=== PATIENT | female | born 1985 | race Two or more races ===

== ENCOUNTER 2018-09-10 07:39 | Day surgery (SDC) | payer MEDICAID ==
[2018-09-10] VITALS (12 sets, daily range): BP systolic 123–156; BP diastolic 63–84; PULSE 57–92; RESP 13–24; Ht 162.6 cm; Wt 84.6 kg
[~2018-09-10] VITALS: Ht 162.6 cm; Wt 84.6 kg
[~2018-09-10 07:39] MED LIST: LABE200T25 PO; PREN1TAB49 PO
--- NOTE | 2018-09-10 07:49 | PREOPHP ---
DATE OF ADMISSION: 09/10/2018 HISTORY OF PRESENT ILLNESS: Ms. Radha Delarosa is a 33-year-old 3, para 3, desires permane nt surgical sterilization. PAST MEDICAL HISTORY: Hypertension. MEDICATIONS: 1. Hydrochlorothiazide. 2. Lisinopril. PAST SURGICAL HISTORY: x1 previous , x2 vaginal delivery. OBSTETRIC HISTORY: x1 previous section, x2 vaginal delivery. GYNECOLOGIC HISTORY: 11, regular 3 to 4 days. Denies any sexually transmitted infections. Sexually active with 1 partner. SOCIAL HISTORY: Denies any smoking, drugs or alcohol. FAMILY HISTORY: None. REVIEW OF SYSTEMS: All within normal except history of present illness. PHYSICAL EXAMINATION: HEENT: Within normal. LUNGS: CTA bilateral. CARDIOVASCULAR: S1, S2, regular rhythm. ABDOMEN: Gravid, nontender. Negative CVA bilateral. EXTREMITIES: Negative calf tenderness. VAGINAL: Normal external genitalia. Cervix negative CMT, negative lesions. Adnexa negative mass, n ontender bilateral. Fundus within normal limits. ASSESSMENT: Multiparity, desires permanent surgical sterilization. PLAN: Consent for laparoscopic bilateral tubal sterilization. Risks, benefits and alternatives expl ained. All questions were answered. Dictated By: TRA REEVES/ERICH Conf#: [id number] DID#: [id number]
[2018-09-10] MEDS ORDERED: [UNRECOGNIZED DRUG - CODE] PO (08:42)
[2018-09-10] MEDS ORDERED: LACTATED RINGER'S 1,000 ML IV SCH (09:30)
--- NOTE | 2018-09-10 10:54 | PREAC ---
Date/Time of Note Date/Time of Note DATE: 09/10/18 TIME: 10:53 Anesthesia Eval and Record Evaluation Time Pre-Procedure Interview DATE: 09/10/18 TIME: 10:53 Age 33 Sex female NPO: 8 hrs Preoperative diagnosis desired sterilization Planned procedure laparoscopic bilateral tubal ligation Past Medical History Past Medical History: Includes Cardio: HTN GI: Obesity Surgery & Anesthesia Issues No known issue Meds Anticoagulation: No Beta Joel within 24 hr: No Reason Beta Joel not given: Pt. not on B-Joel Reported Medications Lisinopril/Hydrochlorothiazide (Zestoretic 20-12.5 mg Tablet) 1 Each Tablet, 1 TAB PO DAILY, TAB 09/10/18 Discontinued Reported Medications Vits W-Ca,Fe,Fa(<1MG) () 1 Tab Tablet, 1 TAB PO 05/03/11 Labetalol Hcl* (Labetalol Hcl*) 200 Mg Tablet, 200 MG PO BID 05/03/11 Current Medications Lactated Ringer's 1,000 ml @ 70 mls/hr [id number] IV Last administered on 09/10/18at 09:31; Admin Dose 70 MLS/HR; Start 09/10/18 at 09:30 Meds reviewed: Yes Allergies Coded Allergies: No Known Allergies (Verified Allergy, Unknown, 09/10/18) Allergies Reviewed: Yes Labs/Studies Labs Reviewed: Reviewed by anesthesiologist Result Diagram: 09/10/18 0857 Laboratory Tests 09/10/18 08:57 Blood Bank Test 09/10/18 08:57 Blood Type A POSITIVE test: Negative Pre-procedure Exam Last vitals Vital Signs Date Temp Pulse Resp B/P (MAP) Pulse Ox O2 O2 Flow FiO2 Time Delivery Rate 09/10/18 98.7 69 16 146/78 99 Room Air 09:18 (100) Airway: Adequate mouth opening, Adequate thyromental dist Mallampati: Mallampati II Teeth: Normal Lung: Normal Heart: Normal ASA Physical Status ASA physical status: 2 Emergency: None Planned Anesthetic General/MAC: ETT Nerve block: TAP (bilateral) Planned Pain Management Single shot nerve block, Parenteral pain med Pre-operative Attestations Prior to commencing anesthesia and surgery, the patient was re-evaluated, there was verification of: *The patient's identity *The results of appropriate recent lab work and preoperative vital signs *The above evaluation not changing prior to induction *Anesthetic plan, risk benefits, alternative and complications discussed with patient/family; questions answered; patient/family understands, accepts and wishes to proceed. Liability Analyst used LYRIC WEST MD Sep 10, 2018 10:54
[2018-09-10] MEDS ORDERED: PROCHLORPERAZINE 10 MG INJ IV PRN (11:00)
[2018-09-10] MEDS ORDERED: MEPERIDINE 25 MG INJ IV PRN (11:00)
[2018-09-10] MEDS ORDERED: ONDANSETRON 4 MG INJ IV PRN (11:00)
[2018-09-10] MEDS ORDERED: DIPHENHYDRAMINE 50 MG INJ IV PRN (11:00)
[2018-09-10] MEDS ORDERED: FENTAnyl 50 MCG/ML VIAL IV PRN ×3 (11:00)
[2018-09-10] MEDS ORDERED: HYDROmorphONE 1 MG/5 ML IV SYRINGE IV PRN ×3 (11:00)
[2018-09-10] MEDS ORDERED: OXYCODONE/ACETAMINOPHEN (5/325) TAB PO PRN (11:00)
[2018-09-10] MEDS ORDERED: PROPOFOL 20 ML ONE (11:25)
[2018-09-10] MEDS ORDERED: LIDOCAINE 2% (SDV) 5 ML INJ ONE (11:25)
[2018-09-10] MEDS ORDERED: SUCCINYLCHOLINE CHLORIDE 100 MG/5 ML SYG IV ONE (11:25)
[2018-09-10] MEDS ORDERED: MIDAZOLAM 1 MG/ML 2 ML INJ ONE (11:25)
[2018-09-10] MEDS ORDERED: FENTAnyl 50 MCG/ML VIAL ONE (11:26)
[2018-09-10] MEDS ORDERED: ROPIVACAINE 0.5 % 30 ML VIAL ONE (11:33)
[2018-09-10] MEDS ORDERED: ROCURONIUM 50 MG INJ ONE (11:46)
[2018-09-10] MEDS ORDERED: CEFAZOLIN 1 GM INJ ONE (11:46)
[2018-09-10] MEDS ORDERED: FAMOTIDINE 20 MG INJ ONE (11:50)
[2018-09-10] MEDS ORDERED: DEXAMETHASONE 4 MG/ML 5 ML INJ ONE (11:50)
[2018-09-10] MEDS ORDERED: ONDANSETRON 4 MG INJ ONE (11:51)
[2018-09-10] MEDS ORDERED: GLYCOPYRROLATE 0.4 MG INJ ONE ×2 (12:06→12:17)
[2018-09-10] MEDS ORDERED: NEOSTIGMINE 3 MG/3 ML SYRINGE ONE ×2 (12:06→12:17)
--- NOTE | 2018-09-10 12:27 | PD.PPDC ---
PMO BUSINESS ANALYST Discharge Instruction Condition [id number] Patient Condition: [id number] Fair Diet Bupep0Gk Diet: Ripay5s Resume Regular Diet Activity/Restrictions Wyenj0Mo Activity: Idpny0u Normal Activity May Shower Sodld9Zn Restrictions: Wpill3w No Exercising No Lifting No Driving No Sexual Activity Nothing in the Vagina No [place] No Tampons, douche Follow-up Follow-up with Physician: 2, Week/Weeks Return to clinic for [id number] CONCRETE JOURNEYMAN Instructions: Ycqiz2f Fever greater than 101 Chills Worsening abdominal pain Excessive Vaginal Bleeding More than 2 pads per hour Unable to tolerate diet [id number] OB Instructions: Vzdcx3l Breast Tenderness Depression Blurried Vision Headache [id number] Surgical Instructions: Xxgum1j Incisional Drainage Incisional Redness TRA CASH MD Sep 10, 2018 12:27
--- NOTE | 2018-09-10 12:27 | OPPN ---
Date/Time of Note Date/Time of Note DATE: 09/10/18 TIME: 12:14 Operative Report Planned Procedure Procedure date Sep 10, 2018 Procedure(s) laparoscopic bilateral tubal fulguration Performed by see signature line Meatcutter: TRA CASH MD 2nd Meatcutter none Pre-procedure diagnosis Multiparity, desires permanent surgical sterilization. [id number] Anesthesia Type: Dgeit7i general Post-Procedure Post-procedure diagnosis same Findings normal uterus tubes and ovaries Estimated Blood Loss: minimal (8019) Specimen(s) none Grafts/Implant(s) none Complication(s) none TRA CASH MD Sep 10, 2018 12:24
--- NOTE | 2018-09-10 13:10 | PAC ---
Date/Time of Note Date/Time of Note DATE: 09/10/18 TIME: 13:10 Post-Anesthesia Notes Post-Anesthesia Note Last documented vital signs Vital Signs Date Temp Pulse Resp B/P (MAP) Pulse Ox O2 O2 Flow FiO2 Time Delivery Rate 09/10/18 60 13 133/73 99 Room Air 13:02 (93) 09/10/18 97.8 12:21 Activity: WNL Respiratory function: WNL Cardiovascular function: WNL Mental status: Baseline Pain reasonably controlled: Yes Hydration appropriate: Yes Nausea/Vomiting absent: Yes LYRIC WEST MD Sep 10, 2018 13:10
--- NOTE | 2018-09-12 16:44 | OPR ---
DATE OF OPERATION: 09/10/2018 PREOPERATIVE DIAGNOSES: Multiparity, desires permanent surgical sterilization. POSTOPERATIVE DIAGNOSES: Multiparity, desires permanent surgical sterilization. PROCEDURE: Laparoscopic bilateral tubal fulguration. SURGEON: Tra Knight MD SHAREPOINT ARCHITECT: None. ANESTHESIA: General. COMPLICATIONS: None. ESTIMATED BLOOD LOSS: Minimal. FINDINGS: Normal uterus, tubes, and ovaries. DESCRIPTION OF PROCEDURE: After explaining the risks, benefits, and alternatives, the patient had co nsent signed in chart. The patient was taken to the operating room where general anesthesia was obta ined without difficulty. The patient was then examined under anesthesia and found to have a small an teverted uterus with normal adnexa. She was then placed in a dorsal lithotomy position and prepared and draped in a sterile fashion. A heavy weighted speculum was then placed in the patient's vagina a nd the anterior lip of the cervix was grasped with a single tooth tenaculum. A HUMI uterine manipula tor was then advanced into the uterus to provide means to manipulate the uterus. The speculum was th en removed from the patient's vagina. Attention was then turned to the patient's abdomen where a 5 m m skin incision was made in the umbilical fold. The Veress needle was carefully introduced into the peritoneal cavity at 45-degree angle while tenting the abdominal wall. Intraperitoneal placement was confirmed by use of water-filled syringe and a drop in intraabdominal pressure with insufflation of CO2 gas. The trocar and sleeve were then advanced without difficulty into the abdomen where intra-ab dominal placement was confirmed by laparoscope. Pneumoperitoneum was obtained with 4 L of CO2 gas, a nd a 5 mm trocar and sleeve were then advanced without difficulty into the abdomen where intra-abdomi nal placement was confirmed by laparoscope. A second skin incision was made 2 cm over the symphysis pubis in the midline. The second trocar and sleeve were then advanced under direct visualization. A survey of the patient's pelvis and abdomen revealed normal. At this point, the right fallopian tube was fulgurated at multiple areas of the ampullary and isthmus area with good blanching. Similarly, the left fallopian tube was fulgurated. The instruments were then removed from the patient's abdomen , and the incision was repaired with 3-0 Vicryl. The HUMI was then removed from the patient's vagina with no bleeding noted from the cervix. The patient tolerated procedure well. Sponge, lap, and nee dle counts were correct. The patient was taken to recovery room in stable condition. Dictated By: TRA REEVES/ERICH Conf#: [id number] DID#: [id number]
== END 2018-09-10 14:20 | disposition home or self-care (01) ==
LOC: SDS 07:39
PROVIDERS: ATTEND Obstetrics & Gynecology
DX: Z30.2 Encounter for sterilization (principal); I10 Essential (primary) hypertension
CPT/HCPCS: 58670; 84702; 84703; 85025; 86900; 86901; J0690; J1100; J1170; J2250; J2405; J2710; J2795; J3010; Z7512; Z7610

== ENCOUNTER → 2018-09-28 | Emergency (ER) | payer MEDICAID ==
[~2018-09-28] VITALS: Ht 162.6 cm; Wt 83.7 kg
[~2018-09-28] MED LIST changes: -LABE200T25 PO; -PREN1TAB49 PO; +[UNRECOGNIZED DRUG - CODE] PO
[2018-09-28 11:53] VITALS: BP 133/68; PULSE 71; RESP 18; Ht 162.6 cm; Wt 83.7 kg
--- NOTE | 2018-09-28 13:13 | ERD ---
ER Documentation Chief Complaint Chief Complaint wound check s/p sterilization on 09/10 HPI 33-year-old female presents with complaints of pain and irritation around the surgical site. She had a tubal ligation performed approximately 2 and half weeks ago. She has an appointment next week for evaluation for suture removal and follow-up with her surgeon. She denies fevers, vomiting, redness, bleeding or discharge. ROS All systems reviewed and are negative except as per history of present illness. Medications Home Meds Reported Medications Lisinopril/Hydrochlorothiazide (Zestoretic 20-12.5 mg Tablet) 1 Each Tablet, 1 TAB PO DAILY, TAB 09/10/18 Allergies Allergies: Coded Allergies: No Known Allergies (Verified Allergy, Unknown, 09/10/18) PMhx/Soc History of Surgery: Yes () Anesthesia Reaction: No Hx Neurological Disorder: No Hx Respiratory Disorders: No Hx Cardiac Disorders: Yes (HTN) Hx Psychiatric Problems: No Hx Miscellaneous Medical Probl: No Hx Alcohol Use: No Hx Substance Use: No Hx Tobacco Use: No FmHx Family History: No diabetes, No coronary disease, No other Physical Exam Vitals Vital Signs Date Temp Pulse Resp B/P (MAP) Pulse Ox O2 O2 Flow FiO2 Time Delivery Rate 09/28/18 97.3 71 18 133/68 99 11:53 (89) Physical Exam Const: No acute distress Head: Atraumatic Eyes: Normal Conjunctiva ENT: Normal External Ears, Nose and Mouth. Neck: Full range of motion. No meningismus. Resp: Clear to auscultation bilaterally Cardio: Regular rate and rhythm, no murmurs Abd: Soft, non tender, non distended. Normal bowel sounds. Healing laparoscopy sites on the lower abdomen and umbilicus. Irritation due to what appears to be absorbable sutures but no induration, streaking, discharge, fluctuance. No deep abdominal tenderness or rebound or masses. Skin: No petechiae or rashes Back: No midline or flank tenderness Ext: No cyanosis, or edema Neur: Awake and alert Psych: Normal Mood and Affect Procedures/MDM Patient presents with what appears to be a satisfactorily healing surgical site from a tubal ligation performed to 9 weeks ago. She does have some remaining absorbable sutures without findings to suggest infection, abscess, and is no signs of deep abdominal tenderness or peritoneal signs. She appears to have irritation likely from the sutures. She is well-appearing. She will discharged home with recommended follow-up with her appointment with her surgeon next week. She will return sooner for fevers, vomiting, new worsening symptoms. The patient was stable with no new complaints during the ER course. Clinically, there is no current evidence to suggest meningitis, sepsis, acute abdomen, pneumonia, stroke, acute coronary syndrome, pulmonary embolism, aortic dissection or any other emergent condition appearing to require further evalua tion or hospitalization. Patient counseled regarding my diagnostic impression and care plan. Prior to discharge all questions answered. Pt agrees with treatment plan and understands strict return precautions. Pt is instructed to follow up with primary care provider within 24-48 hours. Precautionary instructions provided including instructions to return to the ER if not improving or for any worsening or changing symptoms or concerns. Disclaimer: Inadvertent spelling and grammatical errors are likely due to EHR/dictation software use and do not reflect on the overall quality of patient care. Also, please note that the electronic time recorded on this note does not necessarily reflect the actual time of the patient encounter. Departure Diagnosis: Primary Impression: Encounter for wound re-check Condition: Stable Patient Instructions: Post Op Wound Check, Pain Referrals: MADALYN REYES MD (PCP) Additional Instructions: va al cristobal cirijano en proximo marnie. Cheque otro vez con cristobal doctor primario en el proximo dominique or regresa para mas o nueva simptomas- fam lozano. LITA RODRIGUEZ MD Sep 28, 2018 13:13
== END | disposition home or self-care (01) ==
LOC: FTE 11:31
DX: Z48.01 Encounter for change or removal of surgical wound dressing (principal)
CPT/HCPCS: 99281